=== PATIENT | female | born 1955 | race Caucasian/White ===

== ENCOUNTER 2017-05-01 12:23 | Emergency (ER) | payer MEDICARE | END 2017-05-01 13:02 | disposition home or self-care (01) | LOC: NAV ERS 12:23 | DX: R13.10 Dysphagia, unspecified (principal); F41.9 Anxiety disorder, unspecified; I10 Essential (primary) hypertension; F20.9 Schizophrenia, unspecified; Z79.899 Other long term (current) drug therapy | CPT/HCPCS: 93005 ==